=== PATIENT | female | born 1955 | race Caucasian/White ===

== ENCOUNTER 2016-08-10 06:12 | Emergency (ER) | payer SELFPAY ==
[2016-08-10 06:24] VITALS: BMI 28.3
--- NOTE | 2016-08-10 06:33 | EDPRACDOC ---
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 NO N/V/D, NO GIB. Chest Pain Location: Reports: Substernal Pain Radiation: Reports: Back Symptoms Occur: Reports: Suddenly, At Rest Cardiac Risk Factors: Reports: Hyperlipidemia, Diabetes Cardiac History of: Reports: None PE Risk Factors: Reports: None Prehospital Care: Reports: EKG, See EMS Notes (BP 80/45, SO2 78 % RA REQUIRING NRB) Pain Came On: Reports: Gradually Pain Status: Resolved (NEARLY RESOLVED) Pain Description: Reports: Aching Pain Severity: Moderate Pain Worsens With: Reports: Nothing Pain Improves With: Reports: Nothing Associated Signs and Symptoms: Reports: SOB, Diaphoretic, Nausea. Denies: Vomiting, Calf Pain or Swelling, Chest Rash <Yvonne Byrd N - Last Filed: 08/10/16 08:02> <Benjamin Sofia - Last Filed: 08/10/16 10:25> - General Information Chief Complaint: Chest Pain Stated Complaint: CHEST PAIN Time Seen by Provider: 08/10/16 06:24 Allergies/Adverse Reactions: Allergies Allergy/AdvReac Type Severity Reaction Status Date / Time No Known Drug Allergies Allergy Unknown Verified 08/10/16 07:38 ED Past Medical History - History Reviewed Yes Nurses notes reviewed and agree except as marked - Patient Medical History Cardiac History: Reports: Hypertension, Hypercholesterolemia Psychological History: Denies: Depression Systemic History: Denies: Cancer Surgical History: Denies: Hysterectomy - Social Medical History Smoking Status: Never smoker ETOH: None Substance Abuse: None Lives With: Family Lives In: Home <Yvonne Byrd N - Last Filed: 08/10/16 08:02> EDM Review of Systems - Review of Systems ROS Negative Except as Marked: Yes All systems reviewed and were negative except as marked <Yvonne Byrd N - Last Filed: 08/10/16 08:02> - Physical Exam Constitutional: Confused. negative: Alert, Well appearing Oriented to: Person Last recorded Vital Signs: Last Vital Signs Temp 98.2 F 08/10/16 06:18 Pulse 84 08/10/16 06:27 Resp 18 08/10/16 06:27 BP 101/65 08/10/16 06:27 Pulse Ox 93 08/10/16 06:27 Oxygen Pulse Oxygen Saturation 93 O2 Device Nasal Cannula Oxygen Flow Rate 2 Fraction of Inspired Oxygen ( FIO2) - HEENT Head: Normal Eye Exam: negative: Pale Conjunctiva, Scleral Icterus Oropharynx: negative: Membranes Dry Nose: No Symptoms Reported Neck: negative: Edema - Respiratory/Cardiovascular Respiratory: Normal - CTA Cardiovascular: negative: Diastolic murmur, Systolic murmur - GI Auscultation: Normal Palpation: Normal Tenderness: Non tender Cruz's Sign: Negative - Musculoskeletal Back: Normal Extremities: Normal - Integumentary Skin: Warm, Diaphoretic - Neurologic Memory Impaired: Short-term Thought: negative: Coherent <Yvonne Byrd - Last Filed: 08/10/16 08:02> - Physical Exam Last recorded Vital Signs: Last Vital Signs Temp 98.2 F 08/10/16 06:18 Pulse 91 08/10/16 10:10 Resp 16 08/10/16 10:10 BP 111/68 08/10/16 10:10 Pulse Ox 94 08/10/16 10:10 Oxygen Pulse Oxygen Saturation 94 O2 Device Nasal Cannula Oxygen Flow Rate 2 Fraction of Inspired Oxygen ( FIO2) <Bnejamin Sofia - Last Filed: 08/10/16 10:25> - Action ASA given in the ED: No - Re-evaluation N Re-evaluation Time: 06:34 (STABLE, NO CHANGE. SUSPECT PE, WILL GO TO CT EMERGENTLY.) Re-evaluation 2 Re-evaluation Time: 08:02 Temperature: 98.2 F (08/10/16 06:18) HR: 91 (08/10/16 08:00)RR: 16 (08/10/16 08: 00) BP: 105/69 (08/10/16 08:00)Pulse Ox: 97 (08/10/16 08:00) CARE ENDORSED TO DR. SAINT SOFIA WITH ECHO TO [facility] HAS BEEN ORDERED AND RESULTS PENDING. PATIENT CURRENTLY STABLE ON FULL-DOSE HEPARIN. WILL NOT DO TPA AT THIS TIME. DISCUSSED WITH [facility] RECOMMEND TRANSFER TO STEP-DOWN UNIT WHERE THERE ARE NO CURRENT STEP-DOWN UNIT BEDS AVAILABLE AT [facility] CARE WILL BE ENDORSED TO DR. SOFIA AT THIS TIME. FOR FINAL DISPOSITION WHICH MAY BE HOLDING IN THE EMERGENCY DEPARTMENT OR ADMIT TO THIS HOSPITAL, BEDS AT OUTSIDE HOSPITALS ARE VERY LIMITED CURRENTLY. - Results 08/10/16 06:28 08/10/16 06:28 - EKG EKG #1 EKG Time: 06:18 -: Yes EKG interpreted by me Rate: bpm: 87 [place]: Normal Rhythm: NSR Block: 1 Hypertrophy: None ST: Nonsp Comparison: 11/29/08 (SIMILAR) EKG #2 EKG Time: 06:27 -: Yes EKG interpreted by me Rate: bpm: 85 [place]: Normal Rhythm: NSR Block: None Hypertrophy: None ST: Nonsp EKG #3 EKG Time: 06:29 (RIGHT SIDED EKG) -: Yes EKG interpreted by me Rate: bpm: 85 [place]: Normal Rhythm: NSR Block: 1 Hypertrophy: None ST: Nonsp - Diagnostic Imaging Chest Image interpreted by: Radiologist Patient Name: NARESH MCCRACKEN Courtesy Copy to: Diagnostic Imaging Report [facility] [address] [facility] [address] [phone] Diagnostic Imaging Services Courtesy Copy to: Diagnostic Imaging Report Patient Name: NARESH MCCRACKEN LOC: ED : 1955 AGE: 61 Order Date:08/10/16 Date of Service:07/15 Report # [id number] Ord Physician: Yvonne Byrd MD Exam # [id number] Emergency Physician: Yvonne Byrd MD Exam(s): [id number] CT/CT ANGIO CHEST CLINICAL DATA: Unresponsive with shortness of breath. Evaluate for pulmonary embolism. EXAM: CT ANGIOGRAPHY CHEST WITH CONTRAST TECHNIQUE: Multidetector CT imaging of the chest was performed using the standard protocol during bolus administration of intravenous contrast. Multiplanar CT image reconstructions and MIPs were obtained to evaluate the vascular anatomy. CONTRAST: 70 ml Isovue 370. COMPARISON: Chest radiographs 11/29/2008. FINDINGS: Mediastinum: The pulmonary arteries are well opacified with contrast. There are extensive acute bilateral pulmonary emboli involving the distal main, segmental and subsegmental pulmonary arteries bilaterally. The main pulmonary artery is clear. The right ventricle is dilated with an RV to LV ratio of 1.77. There is atherosclerosis of the aorta, great vessels and coronary arteries. There are no enlarged mediastinal, hilar or axillary lymph nodes. The thyroid gland, trachea and esophagus demonstrate no significant findings. Lungs/Pleura: There is no pleural effusion.There is a small calcified left lower lobe granuloma. The lungs are otherwise clear without suspicious pulmonary nodules. Upper abdomen: There is a moderate size hiatal hernia. The visualized upper abdomen otherwise appears unremarkable. Musculoskeletal/Chest wall: No chest wall lesion or acute osseous findings. Review of the MIP images confirms the above findings. IMPRESSION: 1. Study is positive for extensive acute bilateral pulmonary embolism with CT evidence of right heart strain (RV/LV Ratio = 1.77) consistent with at least submassive (intermediate risk) PE. The presence of right heart strain has been associated with an increased risk of morbidity and mortality. 2. Underlying atherosclerosis and moderate size hiatal hernia noted. 3. Critical Value/emergent results were called by telephone at the time of interpretation on 08/10/2016 at 7:[address] YVONNE BYRD MD, who verbally acknowledged these results. Electronically Signed By: Danie Estevez M.D. On: 08/10/2016 07:12 Electronically Signed By: Danie Estevez MD Electronically Signed Date/Time: 715 Dictate Date/Time: 08/10/16 07 Technologist: Rosa Roman Transcribed By: Marybeth Transcribed Date/Time: 08/10/16711 <Yvonne Byrd - Last Filed: 08/10/16 08:02> - Re-evaluation Re-evaluation 3 Re-evaluation Time: 10:22 PT IS ACCEPTED FOR TRANSFER TO [facility] BY HOSPITALIST BUT EXPECTED TRANSFER TIME IS MULTIPLE DAYS. BECAUSE PATIENT CAN POSSIBLY BECOME UNSTABLE RECOMMENDS ATTEMPT TO TRANSFER TO ANOTHER FACILITY THAT FIND A BED MORE READILY. - Results 08/10/16 06:28 08/10/16 06:28 WBC 9.3 xk/uL (3.8-10.8) 08/10/16 06:28 RBC 4.13 xM/uL (4.20-5.40) L 08/10/16 06:28 Hgb 11.0 g/dL (12.0-16.0) L 08/10/16 06:28 Hct 33.7 % (36-47) L 08/10/16 06:28 MCV 82 fL (81-99) 08/10/16 06:28 MCH 26.6 pg (27-32) L 08/10/16 06:28 MCHC 32.5 g/dl (33-36) L 08/10/16 06:28 RDW 14.8 % (11.5-14.5) H 08/10/16 06:28 Plt Count 155 xk/uL (130-400) 08/10/16 06:28 MPV 11.1 fL (7.4-10.4) H 08/10/16 06:28 Neut % (Auto) 72.4 % (45-76) 08/10/16 06:28 Lymph % (Auto) 20.9 % (17-44) 08/10/16 06:28 Coffey % (Auto) 4.2 % (3-10) 08/10/16 06:28 Eos % (Auto) 1.2 % (0-5) 08/10/16 06:28 Baso % (Auto) 1.3 % (0-2) 08/10/16 06:28 Absolute Neuts (auto) 6.70 xk/uL (1.7-8.2) 08/10/16 06:28 Absolute Lymphs (auto) 1.86 xk/uL (0.65-4.75) 08/10/16 06:28 PT 11.1 SEC (9.2-11.2) 08/10/16 06:28 INR 1.1 08/10/16 06:28 APTT 22.1 SEC (22-35) 08/10/16 06:28 Sodium 141 mEq/L (137-146) 08/10/16 06:28 Potassium 3.5 mEq/L (3.5-5.1) 08/10/16 06:28 Chloride 103 mEq/L (98-107) 08/10/16 06:28 Carbon Dioxide 20 mMOL/L (22-33) L 08/10/16 06:28 Anion Gap 22 mEq/L (8-16) H 08/10/16 06:28 BUN 25 MG/DL (7-17) H 08/10/16 06:28 Creatinine 0.60 MG/DL (0.52-1.04) 08/10/16 06:28 Estimated GFR (MDRD) > 60 mL/min (>=60) 08/10/16 06:28 Glucose 234 MG/DL (70-99) H 08/10/16 06:28 Calculated Osmolality 283 MOs/Kg (270-290) 08/10/16 06:28 Calcium 8.8 MG/DL (8.4-10.2) 08/10/16 06:28 Corrected Calcium 9.1 MG/DL (8.4-10.2) 08/10/16 06:28 Total Bilirubin 0.9 MG/DL (0.2-1.3) 08/10/16 06:28 AST 70 IU/L (14-36) H 08/10/16 06:28 ALT 59 IU/L (9-52) H 08/10/16 06:28 Alkaline Phosphatase 78 IU/L (55-165) 08/10/16 06:28 Troponin I 0.12 ng/mL (<.04) 08/10/16 09:38 Total Protein 6.9 G/DL (6.3-8.2) 08/10/16 06:28 Albumin 3.7 G/DL (3.5-5.0) 08/10/16 06:28 Lab Results 08/10/16 08/10/16 08/10/16 09:38 06:28 06:28 WBC 9.3 RBC 4.13 L Hgb 11.0 L Hct 33.7 L MCV 82 MCH 26.6 L MCHC 32.5 L RDW 14.8 H Plt Count 155 MPV 11.1 H Neut % (Auto) 72.4 Lymph % (Auto) 20.9 Coffey % (Auto) 4.2 Eos % (Auto) 1.2 Baso % (Auto) 1.3 Absolute Neuts (auto) 6.70 Absolute Lymphs (auto) 1.86 PT 11.1 INR 1.1 APTT 22.1 Sodium Potassium Chloride Carbon Dioxide Anion Gap BUN Creatinine Estimated GFR (MDRD) Glucose Calculated Osmolality Calcium Corrected Calcium Total Bilirubin AST ALT Alkaline Phosphatase Troponin I 0.12 Total Protein Albumin 08/10/16 06:28 WBC RBC Hgb Hct MCV MCH MCHC RDW Plt Count MPV Neut % (Auto) Lymph % (Auto) Coffey % (Auto) Eos % (Auto) Baso % (Auto) Absolute Neuts (auto) Absolute Lymphs (auto) PT INR APTT Sodium 141 Potassium 3.5 Chloride 103 Carbon Dioxide 20 L Anion Gap 22 H BUN 25 H Creatinine 0.60 Estimated GFR (MDRD) > 60 Glucose 234 H Calculated Osmolality 283 Calcium 8.8 Corrected Calcium 9.1 Total Bilirubin 0.9 AST 70 H ALT 59 H Alkaline Phosphatase 78 Troponin I < 0.01 Total Protein 6.9 Albumin 3.7 Laboratory Results - last 24 hr 08/10/16 08/10/16 08/10/16 06:28 06:28 06:28 WBC 9.3 RBC 4.13 L Hgb 11.0 L Hct 33.7 L MCV 82 MCH 26.6 L MCHC 32.5 L RDW 14.8 H Plt Count 155 MPV 11.1 H Neut % (Auto) 72.4 Lymph % (Auto) 20.9 Coffey % (Auto) 4.2 Eos % (Auto) 1.2 Baso % (Auto) 1.3 Absolute Neuts (auto) 6.70 Absolute Lymphs (auto) 1.86 PT 11.1 INR 1.1 APTT 22.1 Sodium 141 Potassium 3.5 Chloride 103 Carbon Dioxide 20 L Anion Gap 22 H BUN 25 H Creatinine 0.60 Estimated GFR (MDRD) > 60 Glucose 234 H Calculated Osmolality 283 Calcium 8.8 Corrected Calcium 9.1 Total Bilirubin 0.9 AST 70 H ALT 59 H Alkaline Phosphatase 78 Troponin I < 0.01 Total Protein 6.9 Albumin 3.7 08/10/16 09:38 WBC RBC Hgb Hct MCV MCH MCHC RDW Plt Count MPV Neut % (Auto) Lymph % (Auto) Coffey % (Auto) Eos % (Auto) Baso % (Auto) Absolute Neuts (auto) Absolute Lymphs (auto) PT INR APTT Sodium Potassium Chloride Carbon Dioxide Anion Gap BUN Creatinine Estimated GFR (MDRD) Glucose Calculated Osmolality Calcium Corrected Calcium Total Bilirubin AST ALT Alkaline Phosphatase Troponin I 0.12 Total Protein Albumin Laboratory Results 08/10/16 06:28 08/10/16 06:28 <Benjamin Sofia - Last Filed: 08/10/16 10:25> ED Critical Care Note - Critical Care Note Total Time (mins): 35 Comments: Due to the presence of and / or the risk of deterioration, my attendance to this patient required critical care time, including assessment/reassessment, documentation, ordering and interpreting ancillary studies, discussion with ED staff and consultants,patient and family, and excludes time spent on separately billable procedures. <Yvonne Byrd N - Last Filed: 08/10/16 08:02> - Departure Education/Counseling Given To: Patient, Family Member Education/Counseling Given Regarding: Diagnosis, Treatment, Prognosis - Physician Consulted PCC @ [facility] Time Called: 07:00 Provider Called: Mars Hoover Time Maturity Checker Returned Call: 07:22 (SINCE HEMODYNAMIC AND RESPIRATORY STABILITY ACHIEVED, NO SYSTEMIC TPA. REC TRANSFER TO STEP DOWN UNIT, ECHO AT [facility], [facility] IF INDICATED. [facility] REPORTS NO STEP DOWN BEDS CURRENTLY AND NON ANTICIPATED IN NEAR FUTURE.) <Yvonne Byrd N - Last Filed: 08/10/16 08:02> <Benjamin Sofia - Last Filed: 08/10/16 10:25> - Departure Final Diagnosis: BILATERAL CENTRAL PULMONARY EMBOLI Instructions: Chest Pain (ED) Referrals: None,No Provider [Primary Care Provider] - One Week
[2016-08-10 06:34] LABS: AUTOMATED BASOPHIL 1.3 % (0-2); AUTOMATED EOSINOPHIL 1.2 % (0-5); AUTOMATED LYMPH 20.9 % (17-44); AUTOMATED MONOCYTE 4.2 % (3-10); AUTOMATED NEUTROPHIL 72.4 % (45-76); MPV 11.1 fL (7.4-10.4)
[2016-08-10 06:43] LABS: BLOOD UREA NITROGEN 25 MG/DL (7-17); CALC CORRECTED 9.1 MG/DL (8.4-10.2); CALCIUM 8.8 MG/DL (8.4-10.2); CALCULATED OSMOLALITY 283 MOs/Kg (270-290); CHLORIDE 103 mEq/L (98-107); GLUCOSE 234 MG/DL (70-99); SODIUM LEVEL 141 mEq/L (137-146); TOTAL PROTEIN 6.9 G/DL (6.3-8.2)
[2016-08-10 06:56] LABS: PARTIAL THROMB. TIME 22.1 SEC (22-35); PT-INR 1.1
[2016-08-10] MEDS ORDERED: ONDANSETRON HCL 4 MG/2 ML VIAL ONE (06:56)
[2016-08-10] MEDS ORDERED: Pharmacy Review for Metformin - IV Contrast Given SCH (07:00)
[2016-08-10] MEDS ORDERED: ALTEPLASE 100 MG IV STA (07:00)
[2016-08-10] MEDS ORDERED: HEPARIN 5000 UNITS/ML VIAL IV ONE ×2 (07:14→07:30)
--- NOTE | 2016-08-10 07:15 | DIRPT ---
CLINICAL DATA: Unresponsive with shortness of breath. Evaluate for pulmonary embolism. EXAM: CT ANGIOGRAPHY CHEST WITH CONTRAST TECHNIQUE: Multidetector CT imaging of the chest was performed using the standard protocol during bolus administration of intravenous contrast. Multiplanar CT image reconstructions and MIPs were obtained to evaluate the vascular anatomy. CONTRAST: 70 ml Isovue 370. COMPARISON: Chest radiographs 11/29/2008. FINDINGS: Mediastinum: The pulmonary arteries are well opacified with contrast. There are extensive acute bilateral pulmonary emboli involving the distal main, segmental and subsegmental pulmonary arteries bilaterally. The main pulmonary artery is clear. The right ventricle is dilated with an RV to LV ratio of 1.77. There is atherosclerosis of the aorta, great vessels and coronary arteries. There are no enlarged mediastinal, hilar or axillary lymph nodes. The thyroid gland, trachea and esophagus demonstrate no significant findings. Lungs/Pleura: There is no pleural effusion.There is a small calcified left lower lobe granuloma. The lungs are otherwise clear without suspicious pulmonary nodules. Upper abdomen: There is a moderate size hiatal hernia. The visualized upper abdomen otherwise appears unremarkable. Musculoskeletal/Chest wall: No chest wall lesion or acute osseous findings. Review of the MIP images confirms the above findings. IMPRESSION: 1. Study is positive for extensive acute bilateral pulmonary embolism with CT evidence of right heart strain (RV/LV Ratio = 1.77) consistent with at least submassive (intermediate risk) PE. The presence of right heart strain has been associated with an increased risk of morbidity and mortality. 2. Underlying atherosclerosis and moderate size hiatal hernia noted. 3. Critical Value/emergent results were called by telephone at the time of interpretation on 08/10/2016 at 7:[address] YVONNE SAINI MD, who verbally acknowledged these results. Electronically Signed By: Danie Estevez M.D. On: 08/10/2016 07:12
--- NOTE | 2016-08-10 07:16 | DIRPT ---
CLINICAL DATA: Unresponsive. Headache with altered mental status and hypoxia. Acute pulmonary embolism. EXAM: CT HEAD WITHOUT CONTRAST TECHNIQUE: Contiguous axial images were obtained from the base of the skull through the vertex without intravenous contrast. COMPARISON: Limited correlation made with a neck CT 11/29/2008. FINDINGS: There is no evidence of acute intracranial hemorrhage, mass lesion, brain edema or extra-axial fluid collection. The ventricles and subarachnoid spaces are appropriately sized for age. There is no CT evidence of acute cortical infarction. There is fairly extensive confluent periventricular white matter disease, likely due to chronic small vessel ischemic changes. The visualized paranasal sinuses, mastoid air cells and middle ears are clear. The calvarium is intact. IMPRESSION: No acute intracranial findings. Periventricular white matter disease, most commonly seen from chronic small vessel ischemic changes. Electronically Signed By: Danie Estevez M.D. On: 08/10/2016 07:14
[2016-08-10] MEDS ORDERED: HEPARIN 500 ML IV SCH (07:30)
--- NOTE | 2016-08-10 09:56 | CAPUECHO ---
INDICATION: PE, EVAL RIGHT VENTRICLE HEIGHT: 154.9 cm (5 ft 1.0 in) WEIGHT: 68.0 kg (150.0 lbs) BP: 106/63 BSA: 1.022388 m MEASUREMENTS 2D RVIDd: 3.3 cm LVOT Diam: 1.9 cm EF Biplane: 57.86 % LAESV MOD A4C: 58.4 ml LAESV MOD A2C: 28.4 ml LAESV Index (A-L): 26.90 ml/m M-MODE IVSd: 1.0 cm LVIDd: 4.4 cm LVPWd: 0.6 cm LVIDs: 3.2 cm EF(Teich): 54 % Ao Diam: 3.2 cm LA Diam: 3.4 cm DOPPLER MV E Julio: 0.75 m/s MV A Julio: 0.85 m/s MV PHT: 16.75 ms MVA By PHT: 13.14 cm LVOT Vmax: 0.78 m/s AV Vmax: 0.96 m/s ELICIA Vmax, Pt: 2.37 cm TR Vmax: 2.19 m/s TR maxP mmHg RVSP: 34.52 mmHg FINDINGS ------- Procedure:2D images, m-mode, color and spectral Doppler were obtained and reviewed. ECG rhythm:Sinus rhythm. Study quality:This was a technically adequate study. Left Ventricle:The left ventricular size is normal. Left ventricular wall thickness is normal. T here is normal global left ventricular contractility. Overall left ventricular systolic function i s normal with, an EF between 55 - 60 %. The diastolic filling pattern indicates impaired relaxatio n. Right Ventricle:The right ventricle is mildly enlarged. The right ventricular systolic function is at the low end of normal. Left Atrium:The left atrium is normal in size. Right Atrium:The right atrium is normal in size and function. Aortic Valve:The aortic valve is trileaflet and appears structurally normal. There is mild aortic valve sclerosis. Mitral Valve:Normal appearing mitral valve. No mitral regurgitation. Tricuspid Valve:The tricuspid valve appears structurally normal. Mild tricuspid regurgitation pres ent. The right ventricular systolic pressure, as measured by Doppler, is 35mmHg. Pulmonic Valve:The pulmonic valve is normal. There is no pulmonic regurgitation present. Aorta:The aortic root, ascending aorta and aortic arch appear normal. IVC:Normal inferior vena cava with normal inspiratory collapse. Pericardium:There is no pericardial effusion. CONCLUSIONS 1. The left ventricular size is normal. 2. Overall left ventricular systolic function is normal with, an EF between 55 - 60 %. 3. The diastolic filling pattern indicates impaired relaxation. 4. The right ventricle is mildly enlarged. 5. The right ventricular systolic function is at the low end of normal. This evaluation is suboptima l. Discussed with ER Physician. 6. Mild tricuspid regurgitation present. Electronically Signed By: Cameron Russell MD -- Electronically Signed On: 09:56:11
--- NOTE | 2016-08-10 11:54 | DIRPT ---
CLINICAL DATA: History of bilateral pulmonary embolism. EXAM: BILATERAL LOWER EXTREMITY VENOUS DOPPLER ULTRASOUND TECHNIQUE: Sosa-scale sonography with graded compression, as well as color Doppler and duplex ultrasound were performed to evaluate the lower extremity deep venous systems from the level of the common femoral vein and including the common femoral, femoral, profunda femoral, popliteal and calf veins including the posterior tibial, peroneal and gastrocnemius veins when visible. The superficial great saphenous vein was also interrogated. Spectral Doppler was utilized to evaluate flow at rest and with distal augmentation maneuvers in the common femoral, femoral and popliteal veins. COMPARISON: Chest CTA - 08/10/2016 FINDINGS: RIGHT LOWER EXTREMITY Common Femoral Vein: No evidence of thrombus. Normal compressibility, respiratory phasicity and response to augmentation. Saphenofemoral Junction: No evidence of thrombus. Normal compressibility and flow on color Doppler imaging. Profunda Femoral Vein: No evidence of thrombus. Normal compressibility and flow on color Doppler imaging. Femoral Vein: No evidence of thrombus. Normal compressibility, respiratory phasicity and response to augmentation. Popliteal Vein: No evidence of thrombus. Normal compressibility, respiratory phasicity and response to augmentation. Calf Veins: No evidence of thrombus. Normal compressibility and flow on color Doppler imaging. Superficial Great Saphenous Vein: No evidence of thrombus. Normal compressibility. Slightly sluggish flow is demonstrated on color Doppler imaging. Venous Reflux: None. Other Findings: None. LEFT LOWER EXTREMITY Common Femoral Vein: No evidence of thrombus. Normal compressibility, respiratory phasicity and response to augmentation. Saphenofemoral Junction: Age indeterminate near occlusive thrombus is seen within the proximal aspect the greater saphenous vein extending to abut the saphenofemoral junction (image 78) but without definitive extension into the left common femoral vein. Profunda Femoral Vein: No evidence of thrombus. Normal compressibility and flow on color Doppler imaging. Femoral Vein: No evidence of thrombus. Normal compressibility, respiratory phasicity and response to augmentation. Popliteal Vein: No evidence of thrombus. Normal compressibility, respiratory phasicity and response to augmentation. Calf Veins: No evidence of thrombus. Normal compressibility and flow on color Doppler imaging. Superficial Great Saphenous Vein: There is a moderate amount of eccentric mixed echogenic nonocclusive thrombus throughout the imaged course of the left greater saphenous vein with echogenic shadowing calcification noted within the distal thigh segment (image 47). The greater saphenous vein appears to contain this age-indeterminate thrombus throughout its imaged course (players club representative image 85). Venous Reflux: None. Other Findings: None. IMPRESSION: 1. Age indeterminate though at least partially chronic superficial thrombophlebitis throughout the imaged course of the greater saphenous vein. There is extension of this thrombus to abut the saphenofemoral junction without definite extension to involve the deep venous system of the left lower extremity. 2. No evidence of acute or chronic DVT within the right lower extremity. Electronically Signed By: Bertrand Alberto M.D. On: 08/10/2016 11:52
[2016-08-10 20:24] VITALS: BP 152/77; PULSE 92; TEMP 98.4
== END 2016-08-10 12:35 | disposition short-term general hospital (02) ==
LOC: ED 06:12
DX: I26.99 Other pulmonary embolism without acute cor pulmonale (principal); I10 Essential (primary) hypertension; E78.00 Pure hypercholesterolemia, unspecified; R51 Headache; R41.82 Altered mental status, unspecified
CPT/HCPCS: 36415; 70450; 71275; 80053; 84484; 85025; 85610; 85730; 93005; 93306; 93970; 96361; 96365; 96366; 99285; A9698; J1644; J2405; J2997